=== PATIENT | female | born 1940 | race Caucasian/White ===

== ENCOUNTER 2016-08-07 08:45 | Day surgery (SDC) | payer OTHER ==
[~2016-08-07] VITALS: Ht 147.3 cm; Wt 70.8 kg
[~2016-08-07 08:45] MED LIST: DESYREL100 MG PO; GLUCOPHAGE1000 MG PO; LO-DOSE ASPIRIN81 M2 PO; LORTAB 5-325 M1 EACH PO; NORVASC5 MG PO; PRILOSEC20 MG PO; PRINZIDE 20-121 EACH PO; XANAX0.25 MG PO; ZOCOR20 MG PO
[2016-08-07 09:25] LABS: POINT-OF-CARE METER ID UU14174212
[2016-08-07 10:21] VITALS: BP 168/77
[2016-08-07 18:41] LABS: POINT-OF-CARE METER ID UU13113675; POINT-OF-CARE USER ID 515036437
[2016-08-07 20:07] VITALS: BP 153/73
[2016-08-07 23:32] VITALS: BP 148/76
[2016-08-08 03:59] VITALS: BP 139/70
[2016-08-08 08:00] VITALS: BP 138/68
[2016-08-08] MEDS ORDERED: COLACE100 MG PO (12:35)
[2016-08-08] MEDS ORDERED: OXAYDO5 MG PO (12:35)
== END 2016-08-08 13:57 | disposition home or self-care (01) ==
LOC: SDC 08:45 → NUC 11:00 → 2SOUTH 18:18 → 2EASTP 18:18 → 2SOUTH 18:18 → 2EASTP 20:02
PROVIDERS: Surgery
DX: C50.912 Malignant neoplasm of unspecified site of left female breast (principal); C77.3 Secondary and unspecified malignant neoplasm of axilla and upper limb lymph nodes; K21.9 Gastro-esophageal reflux disease without esophagitis; E78.5 Hyperlipidemia, unspecified; M54.5 Low back pain; I10 Essential (primary) hypertension; R94.31 Abnormal electrocardiogram [ECG] [EKG]; F41.9 Anxiety disorder, unspecified
CPT/HCPCS: 78195; 78999; 82948; 88305; 88307; 88331; 88332; A9541; G0378; J0330; J0690; J1170; J2250; J2405; J3010; J3480; S0020